=== PATIENT | male | born 1995 | race Hispanic/Latino ===

== ENCOUNTER → 2018-05-14 | Outpatient (CLI) | payer OTHER ==
--- NOTE | 2018-05-14 15:32 | PFTRPT ---
Height: 70.00 Inches Weight: 205.00 Lbs BSA: 2.11 Diagnosis: SOB DATE OF PROCEDURE: 05/14/2018 ORDERING PROVIDER: Bryan Jensen Spirometry: Pre and post bronchodilator study of excellent technical quality. Forced vital capacity normal. FEV1 in proportion. Obstructive index is, therefore, normal. Flow Volume Loop: Expiratory limb of the flow volume loop is normal. No significant bronchodilator response is identified. Lung Volumes: Total lung capacity normal. Residual volume is in proportion. Diffusing Capacity: Diffusing capacity normal. Hemoglobin: No hemoglobin available for correction. Airway Mechanics: Airway resistance mildly elevated. IMPRESSION: Nonspecific elevation in airway resistance requires clinical correlation. Please correlate with the above. MTDD
== END ==
LOC: M CARPUL 12:43
PROVIDERS: ATTEND Physician Assistant
DX: R06.02 Shortness of breath (principal)